=== PATIENT | female | born 1985 | race Caucasian/White ===

== ENCOUNTER 2017-07-02 11:35 | Inpatient (IN) | payer BC ==
[2017-07-02] MEDS ORDERED: Nalbuphine 20 MG/1 ML Amp IVPUSH PRN (12:28)
[2017-07-02] MEDS ORDERED: Sodium Chloride 0.9% 10 ML Syringe FLUSH PRN (12:28)
[2017-07-02] MEDS ORDERED: Oxytocin/Lactated Ringers 10 UNIT/1,000 ML BAG IV SCH ×2 (12:30)
[2017-07-02] MEDS: Lactated Ringers 1,000 ML IV SCH ×4 (14:00→22:06)
[2017-07-02] MEDS ORDERED: diphenhydrAMINE 50 MG/ML SDV IVPUSH PRN (15:17)
[2017-07-02] MEDS ORDERED: ePHEDrine 50 MG/ML SDV IVPUSH PRN (15:17)
[2017-07-02] MEDS ORDERED: fentaNYL 100 MCG/2 ML SDV EPIDUR PRN (15:17)
[2017-07-02] MEDS ORDERED: Bupivacaine/fentaNYL/NS 100 ML Bag EPIDUR SCH (15:30)
--- NOTE | 2017-07-02 15:49 | PCM.PREANE ---
Preanesthetic Assessment - Anesthesia/Transfusion/Family Hx Anesthesia History: Prior Anesthesia Without Reaction Family History of Anesthesia Reaction: No Transfusion History: No Prior Transfusion(s) - Review of Systems General: No Symptoms Pulmonary: No Symptoms Cardiovascular: No Symptoms Gastrointestinal: No Symptoms Neurological: No Symptoms Other: Reports: None - Physical Assessment Pulse: 48 O2 Sat by Pulse Oximetry: 97 Respiratory Rate: 14 Blood Pressure: 121/76 Temperature: 36.3 C Vital Signs: Last Vital Signs Temp 36.4 C 07/02/17 12:28 Pulse 48 L 07/02/17 12:31 Resp 14 07/02/17 12:28 BP 124/76 07/02/17 12:28 Pulse Ox Height: 1.7 m Weight: 100.698 kg ASA Class: 2 Mental Status: Alert & Oriented x3 Airway Class: Mallampati = 1 Dentition: Reports: Normal Dentition Thyro-Mental Finger Breadths: 3 Mouth Opening Finger Breadths: 3 ROM/Head Extension: Full Lungs: Clear to Auscultation, Normal Respiratory Effort Cardiovascular: Regular Rate, Regular Rhythm - Lab Values: Laboratory Last Values WBC 11.27 K/mm3 (3.98-10.04) H 07/02/17 12:40 RBC 4.49 M/mm3 (3.98-5.22) 07/02/17 12:40 Hgb 13.7 gm/L (11.2-15.7) 07/02/17 12:40 Hct 40.0 % (34.1-44.9) 07/02/17 12:40 MCV 89.1 fl (79.4-94.8) 07/02/17 12:40 MCH 30.5 pg (25.6-32.2) 07/02/17 12:40 MCHC 34.3 g/dl (32.2-35.5) 07/02/17 12:40 RDW Std Deviation 44.2 fL (36.4-46.3) 07/02/17 12:40 Plt Count 204 K/mm3 (182-369) 07/02/17 12:40 MPV 10.5 fl (9.4-12.3) 07/02/17 12:40 Neut % (Auto) 76.6 % (34.0-71.1) H 07/02/17 12:40 Lymph % (Auto) 14.0 % (19.3-51.7) L 07/02/17 12:40 Jess[place] % (Auto) 8.6 % (4.7-12.5) 07/02/17 12:40 Eos % (Auto) 0.2 (0.7-5.8) L 07/02/17 12:40 Baso % (Auto) 0.2 % (0.1-1.2) 07/02/17 12:40 Neut # (Auto) 8.63 K/mm3 (1.56-6.13) H 07/02/17 12:40 Lymph # (Auto) 1.58 K/mm3 (1.18-3.74) 07/02/17 12:40 Jessamine # (Auto) 0.97 K/mm3 (0.24-0.36) H 07/02/17 12:40 Eos # (Auto) 0.02 K/mm3 (0.04-0.36) L 07/02/17 12:40 Baso # (Auto) 0.02 K/mm3 (0.01-0.08) 07/02/17 12:40 - Allergies Allergies/Adverse Reactions: Allergies Allergy/AdvReac Type Severity Reaction Status Date / Time No Known Allergies Allergy Verified 07/02/17 12:32 - Anesthesia Plan Pre-Op Medication Ordered: None - Acknowledgements Anesthesia Type Planned: Epidural Pt an Appropriate Candidate for the Planned Anesthesia: Yes Alternatives and Risks of Anesthesia Discussed w Pt/Guardian: Yes Pt/Guardian Understands and Agrees with Anesthesia Plan: Yes PreAnesthesia Questionnaire Gastrointestinal History: Reports: GERD - HOME MEDS Home Medications: Home Meds Vit W-Ca,Fe,FA(<1 mg) [ Vitamins] 1 each PO DAILY 07/02/17 [ History] - CURRENT (IN HOUSE) MEDS Current Meds: Current Medications Diphenhydramine HCl (Benadryl) 25 mg IVPUSH Q6H PRN PRN Reason: Itching Ephedrine Sulfate (Ephedrine Sulfate) 5 mg IVPUSH ASDIRECTED PRN PRN Reason: HYPOTENTSION Fentanyl (Sublimaze) 100 mcg EPIDUR Q3H PRN PRN Reason: PAIN Fentanyl/Bupivacaine HCl (Fentanyl/Bupivacaine/Ns 2 Mcg-0.125% 100 Ml) 100 ml EPIDUR ASDIRECTED JÚNIOR Lactated Ringer's (Ringers, Lactated) 1,000 mls @ 100 mls/hr IV ASDIRECTED JÚNIOR Oxytocin/Lactated Ringer's (Pitocin In Lr 10 Units/1,000 Ml) 10 unit in 1,000 mls @ 12 mls/hr IV TITRATE JÚNIOR; 2 MUNITS/MIN PRN Reason: Protocol Oxytocin/Lactated Ringer's (Pitocin In Lr 10 Units/1,000 Ml) 10 unit in 1,000 mls @ 500 mls/hr IV .CONTINUOUS JÚNIOR Lidocaine HCl (Xylocaine 1%) 0 ml INJECT ONETIME ONE Stop: 07/02/17 18:01 Nalbuphine HCl (Nubain) 10 mg IVPUSH Q2H PRN PRN Reason: Pain (moderate 4-6) Last Admin: 07/02/17 15:15 Dose: 10 mg Sodium Chloride (Saline Flush) 10 ml FLUSH ASDIRECTED PRN PRN Reason: Keep Vein Open
--- NOTE | 2017-07-02 16:43 | PCM.LDHP ---
L&D History of Present Illness - General Date of Service: 07/02/17 Admit Problem/Dx: Patient Status Order with Admit Dx/Problem 07/02/17 12:35 Admission Status [Patient Status] [ADT] Routine Admission Diagnosis/Problem Admission Diagnosis/Problem Labor established 07/02/17 16:36 39-6/7 week intrauterine , early active labor Source of Information: Patient History Limitations: Reports: No Limitations - History of Present Illness Introduction:: Amber is a 31-year-old 1 para 0 white female was admitted after being seen in clinic for reported contractions. Contractions occurring every 3-5 minutes, moderate in intensity and starting at approximately 0300 hrs. this morning. She is dilated to a tight 3 cm, 95% effaced, -2 station, bulging bag ramirez, mid position and very soft. Her presents change from her evaluation yesterday. Eyes consistent with early active labor [employer]OR [employer] FAMILY MEDICINE history: Patient is 1 para 0. Her CARMEN is 07/03/2017 as based upon an early ultrasound done on 11/14/2016 at 7-0/7 weeks gestational age. Is supported by another ultrasound done on ultrasound done on 2016 at 10-4/7 weeks gestational age. Patient was seen on a regular basis with first visit occurring on 12/08/2016. Ultrasound at that time consistent with earlier ultrasound dating. Patient was a centering patient and was seen on a very regular basis. Her weight gain was from 189 pounds up to 223 pounds for a 44 pound weight gain. Her blood pressure and other vital signs are stable throughout the course Her fundal height growth was appropriate. She plans to breast-feed. She declined genetic testing.. Her depression screening score on 02/05/2017 was for a scale of 30. Her group B strep screen was negative. Patient has a history of mild depression placement at slightly higher risk for depression. Laboratory testing and shows her blood to be A+ with negative antibody screen. Her first laboratory tests showed hemoglobin 14.7 g/ dL and a platelet count 281,000. She is rubella immune. RPR is nonreactive. Hepatitis B and HIV assays were negative. Chlamydia and gonorrhea assays both negative. Her TSH was normal at 2.290 mU/L. S and showed a hematocrit of 40.2 and hemoglobin normal at 13.8 g/dL. Her platelets are 222,000. One-hour GTT was normal at 83. Group B strep screen was negative. Allergies: none Medications: vitamins Past medical history: Unremarkable Past surgical history: [place] teeth extraction Family history: Mother is alive with arthritis. Father is alive at age 68 and healthy. Maternal grandmother is secondary to old age. Paternal grandfather secondary to cancermesothelioma. Paternal grandmother is alive and well. Paternal grandfather is deceasedcause unknown. she reports no bleeding, clotting, anesthesia problems in the family. Social history: Patient is , lives in [place]. She works at [employer]. is [place]. She denies any significant loss of alcohol, drugs or tobacco. Review of systems: In general patient has symptoms of early labor. Skin: Negative Cardiovascular: No chest pain or exercise intolerance Respiratory: No shortness of breath or infectious symptoms Breasts: Changes associated with . Patient plans to breast-feed. GI: Negative : Increased abdominal girth secondary to . Neurological: Negative Musculoskeletal: Negative Physical exam: In general the patient is well-developed, well-nourished, pleasant female in mild distress secondary to early labor. Gain is warm and dry without lesions. HEENT, neck and back within normal limits Lungs are clear with good breath sounds in all lung casanova. Cardiovascular exam shows regular rate and rhythm without murmurs. Breast exam is deferred Abdomen is protuberant with with fundal height of 39 cm. Baby in vertex presentation. Cervix is as described above. Artificial rupture membranes undertaken with resultant clear amniotic fluid. Extremities and neurological exam grossly within normal limits. Pain Score: 10 - Related Data Allergies/Adverse Reactions: Allergies Allergy/AdvReac Type Severity Reaction Status Date / Time No Known Allergies Allergy Verified 07/02/17 12:32 Home Medications: Home Meds Vit W-Ca,Fe,FA(<1 mg) [ Vitamins] 1 each PO DAILY 07/02/17 [ History] Past Medical History Gastrointestinal History: Reports: GERD H&P Review of Systems - Review of Systems: Review Of Systems: See Below L&D Exam - Exam Exam: See Below - Vital Signs Vital Signs: Last Vital Signs Temp 36.3 C 07/02/17 15:49 Pulse 48 L 07/02/17 15:49 Resp 14 07/02/17 15:49 BP 121/76 07/02/17 15:49 Pulse Ox 97 07/02/17 15:49 Weight: 100.698 kg - Patient Data Lab Results Last 24 hrs: Laboratory Results - last 24 hr 07/02/17 Range/Units 12:40 WBC 11.27 H (3.98-10.04) K/mm3 RBC 4.49 (3.98-5.22) M/mm3 Hgb 13.7 (11.2-15.7) gm/L Hct 40.0 (34.1-44.9) % MCV 89.1 (79.4-94.8) fl MCH 30.5 (25.6-32.2) pg MCHC 34.3 (32.2-35.5) g/dl RDW Std Deviation 44.2 (36.4-46.3) fL Plt Count 204 (182-369) K/mm3 MPV 10.5 (9.4-12.3) fl Neut % (Auto) 76.6 H (34.0-71.1) % Lymph % (Auto) 14.0 L (19.3-51.7) % Williamson % (Auto) 8.6 (4.7-12.5) % Eos % (Auto) 0.2 L (0.7-5.8) Baso % (Auto) 0.2 (0.1-1.2) % Neut # (Auto) 8.63 H (1.56-6.13) K/mm3 Lymph # (Auto) 1.58 (1.18-3.74) K/mm3 Williamson # (Auto) 0.97 H (0.24-0.36) K/mm3 Eos # (Auto) 0.02 L (0.04-0.36) K/mm3 Baso # (Auto) 0.02 (0.01-0.08) K/mm3 Result Diagrams: 07/02/17 12:40 Problem List Initiated/Reviewed/Updated: Yes Orders Last 24hrs: Active Orders 24 hr Category Date Time Status Admission Status [Patient Status] [ADT] Routine ADT 07/02/17 12:35 Active Activity as Tolerated [RC] PFP Care 07/02/17 12:28 Active Communication Order [RC] ASDIRECTED Care 07/02/17 12:28 Active Communication Order [RC] ASDIRECTED Care 07/02/17 15:17 Active Cooling Warming Measures [RC] ASDIRECTED Care 07/02/17 15:17 Active Notify Provider [RC] ASDIRECTED Care 07/02/17 15:17 Active Notify Provider [RC] PFP Care 07/02/17 12:28 Active Notify Provider [RC] PRN Care 07/02/17 12:28 Active Oxygen Therapy [RC] ASDIRECTED Care 07/02/17 15:17 Active Peripheral IV Care [RC] . DIRECTED Care 07/02/17 12:29 Active Pulse Oximetry [RC] ASDIRECTED Care 07/02/17 15:17 Active Urinary Catheter Assessment [RC] ASDIRECTED Care 07/02/17 12:28 Active Verify Patient Consent Obtain [RC] ASDIRECTED Care 07/02/17 15:17 Active Vital Signs [RC] PER UNIT ROUTINE Care 07/02/17 12:28 Active Vital Signs [RC] Q1H Care 07/02/17 15:17 Active Regular Diet [DIET] Diet 07/02/17 Lunch Active Bupivacaine/fentaNYL/NS [fentaNYL/Bupivacaine/NS 2 MCG- Med 07/02/17 15:30 Active 0.125% 100 ML] 100 ml EPIDUR ASDIRECTED Lactated Ringers [Ringers, Lactated] 1,000 ml Med 07/02/17 12:30 Active IV ASDIRECTED Lidocaine 1% [Xylocaine 1%] Med 07/02/17 18:00 Once 0 ml INJECT ONETIME ONE Nalbuphine [Nubain] Med 07/02/17 12:28 Active 10 mg IVPUSH Q2H PRN Oxytocin/Lactated Ringers [Pitocin in LR 10 Units/1,000 Med 07/02/17 12:30 Active ML] 10 unit in 1,000 ml IV .CONTINUOUS Oxytocin/Lactated Ringers [Pitocin in LR 10 Units/1,000 Med 07/02/17 12:30 Active ML] 10 unit in 1,000 ml IV TITRATE Sodium Chloride 0.9% [Saline Flush] Med 07/02/17 12:28 Active 10 ml FLUSH ASDIRECTED PRN diphenhydrAMINE [Benadryl] Med 07/02/17 15:17 Active 25 mg IVPUSH Q6H PRN ePHEDrine [ePHEDrine Sulfate] Med 07/02/17 15:17 Active 5 mg IVPUSH ASDIRECTED PRN fentaNYL [Sublimaze] Med 07/02/17 15:17 Active 100 mcg EPIDUR Q3H PRN Electronic Heart Tones Ext w TOCO [WOMSER] Oth 07/02/17 12:28 Ordered Routine Electronic Heart Tones Internal [WOMSER] Per Unit Oth 07/02/17 12:28 Ordered Routine Peripheral IV Insertion Adult [OM.PC] Routine Oth 07/02/17 12:28 Ordered Resuscitation Status Routine Resus Stat 07/02/17 12:28 Ordered Medication Orders Diphenhydramine HCl (Benadryl) 25 mg IVPUSH Q6H PRN PRN Reason: Itching Ephedrine Sulfate (Ephedrine Sulfate) 5 mg IVPUSH ASDIRECTED PRN PRN Reason: HYPOTENTSION Fentanyl (Sublimaze) 100 mcg EPIDUR Q3H PRN PRN Reason: PAIN Fentanyl/Bupivacaine HCl (Fentanyl/Bupivacaine/Ns 2 Mcg-0.125% 100 Ml) 100 ml EPIDUR ASDIRECTED JÚNIOR Lactated Ringer's (Ringers, Lactated) 1,000 mls @ 100 mls/hr IV ASDIRECTED JÚNIOR Last Admin: 07/02/17 16:04 Dose: 100 mls/hr Infusion: 07/02/17 16:04 Dose: 100 mls/hr Admin: 07/02/17 14:00 Dose: 100 mls/hr Oxytocin/Lactated Ringer's (Pitocin In Lr 10 Units/1,000 Ml) 10 unit in 1,000 mls @ 12 mls/hr IV TITRATE JÚNIOR; 2 MUNITS/MIN PRN Reason: Protocol Oxytocin/Lactated Ringer's (Pitocin In Lr 10 Units/1,000 Ml) 10 unit in 1,000 mls @ 500 mls/hr IV .CONTINUOUS JÚNIOR Lidocaine HCl (Xylocaine 1%) 0 ml INJECT ONETIME ONE Stop: 07/02/17 18:01 Nalbuphine HCl (Nubain) 10 mg IVPUSH Q2H PRN PRN Reason: Pain (moderate 4-6) Last Admin: 07/02/17 15:15 Dose: 10 mg Sodium Chloride (Saline Flush) 10 ml FLUSH ASDIRECTED PRN PRN Reason: Keep Vein Open Assessment/Plan Comment:: 1. 39-6/7 week intrauterine , early active labor with cervical change 2. Relatively low risk . Dating with a 7-0/7 week ultrasound 3. B strep screen negative 4. Patient plans to breast-feed 5. History of mild depression in the past-has not had any problems during this . 6. She is okay with epidural in labor and delivery Plan: 1. Anticipate normal spontaneous vaginal delivery 2. Epidural when necessary for labor analgesia 3. CBC for platelet count 4. Support breast-feeding decision.
[2017-07-02] MEDS ORDERED: Lidocaine 1% 50 ML MDV INJECT ONE (18:00)
[2017-07-02] MEDS ORDERED: Bupivacaine 0.25% 10 ML SDV ONE (22:22)
[2017-07-03] MEDS: Lactated Ringers 1,000 ML IV SCH (00:53)
--- NOTE | 2017-07-03 04:41 | PCM.SN ---
- Free Text/Narrative Note: Delivery note: Amber is a 31-year-old 1 para 1001 white female who is admitted in active labor on 07/02/2017. She progressed slowly until artificial rupture membranes which had resultant clear amniotic fluid. After the rupture membranes labor picked up. She was augmented with Pitocin. She had an epidural for analgesia in labor and delivery. She became completely dilated at approximately 0100 hrs. on 07/03/2017. She pushed for approximately 2-1/2 hours and delivered a viable, vu, female infant with Apgars of 8 and 9, length of 20.25 inches, a weight of 3430 g (7 pounds 9.0 ounces with delivery occurring at 0412 hrs. Pitocin was started after delivery to facilitate increase in uterine tone and decrease bleeding. Baby delivered in a left occiput anterior position. The baby was placed on mom's abdomen. The cord was allowed to pulsate until it stopped and then was clamped 2 and then was cut by the baby's father. Cord blood was obtained. A second-degree laceration which occurred with the delivery was repaired with 3-0 Monocryl using epidural as anesthesia. Central delivered in a González presentation. It appeared intact, complete and was discarded per patient desire. Patient plans to nurse. Estimated blood loss was 100 mL. Condition: Good
[2017-07-03] MEDS ORDERED: Lanolin 100% Cream 7 GM Tube TOP PRN (05:12)
[2017-07-03] MEDS ORDERED: Witch Hazel Medicated Pads 100/Jar TOP PRN (05:12)
[2017-07-03] MEDS ORDERED: Acetaminophen 325 MG Tab PO PRN (05:12)
[2017-07-03] MEDS ORDERED: Benzocaine/Menthol 20%-0.5% Spray 56 GM Canister TOP PRN (05:12)
[2017-07-03] MEDS: Ibuprofen 600 MG Tab PO PRN ×3 (05:46→19:57)
--- NOTE | 2017-07-03 13:06 | PCM48HPAN ---
Post Anesthesia Note - EVALUATION WITHIN 48HRS OF ANESTHETIC Vital Signs in Normal Range: Yes Patient Participated in Evaluation: Yes Respiratory Function Stable: Yes Airway Patent: Yes Cardiovascular Function Stable: Yes Hydration Status Stable: Yes Pain Control Satisfactory: Yes Nausea and Vomiting Control Satisfactory: Yes Mental Status Recovered: Yes - COMMENTS/OBSERVATIONS Free Text/Narrative:: Pt doing well resting in bed. No anesthetic complications.
[2017-07-03] MEDS: Prenatal Multivitamin with Calcium/Folic Acid/Iron Tab PO SCH (14:00)
[2017-07-03] MEDS: Docusate Sodium 100 MG Cap PO PRN (15:22)
[2017-07-04] MEDS: Ibuprofen 600 MG Tab PO PRN ×2 (04:15→09:44)
[2017-07-04] MEDS: Docusate Sodium 100 MG Cap PO PRN (04:15)
--- NOTE | 2017-07-04 09:36 | PCM.DCSUM1 ---
Discharge Summary - Hospital Course Free Text/Narrative:: Amber is a 31-year-old 1 para 1001 white female who was admitted in active labor on 07/02/2017. She progressed slowly until artificial rupture membranes. After the rupture membranes labor picked up. She was augmented with Pitocin. She had an epidural for analgesia in labor and delivery. She became completely dilated at approximately 0100 hrs. on 07/03/2017. She pushed for approximately 2-1/2 hours and delivered a viable, vu, female with Apgars of 8 and 9, length of 20.25 inches, a weight of 3430 g (7 pounds 9.0 ounces with delivery occurring at 0412 hrs. Pitocin was started after delivery to facilitate increase in uterine tone and decrease bleeding. Baby delivered in a left occiput anterior position. The baby was placed on mom's abdomen. The cord was allowed to pulsate until it stopped and then was clamped 2 and then was cut by the baby's father. Cord blood was obtained. A second-degree laceration which occurred with the delivery was repaired with 3-0 Monocryl using epidural as anesthesia. Central delivered in a Langston presentation. It appeared intact, complete and was discarded per patient desire. Patient plans to nurse. Estimated blood loss was 100 mL. patient's done well. She is nursing without problems, has minimal lochia. Hemoglobin is 11.1 and platelets are within normal limits. She is desiring discharge home. - Discharge Data Discharge Date: 07/04/17 Discharge Disposition: Home, Self-Care 01 Condition: Good - Patient Instructions Diet: Regular Diet as Tolerated (Nursing diet was increased calories and calcium as directed.) Activity: As Tolerated (No intercourse or tampons until bleeding resolves.) Driving: May Drive Today Showering/Bathing: May Shower (May take a bath) Notify Provider of: Fever, Increased Pain, Swelling and Redness, Nausea and/or Vomiting - Discharge Plan Home Medications: Home Meds Vit W-Ca,Fe,FA(<1 mg) [ Vitamins] 1 each PO DAILY 07/02/17 [ History] Acetaminophen [Tylenol] 650 mg PO Q4H PRN tablet 07/04/17 [Rx] Docusate Sodium [Colace] 100 mg PO BID PRN cap 07/04/17 [Rx] Ibuprofen [IJD: Ibuprofen] 600 mg PO Q4H PRN tablet 07/04/17 [Rx] Patient Handouts: and Mastitis, Vaginal Delivery, Care After, Breast Pumping Tips, [id number], Challenges and Solutions Referrals: Ramos Kerns MD [Primary Care Provider] - ([facility] - Discharge Summary/Plan Comment DC Time >30 min.: No Discharge Summary/Plan Comment: Discharge instructions: 1. Discharge home 2. Diet, activity and follow-up discussed with patient. Recommend nursing diet with increased calories and calcium. 3. Precautions given concern increased pain, bleeding, temperature, signs/ symptoms of DVT/PE. 4. Medications per home medication was printed, discussed with and given to the patient. 5. [facility] Diagnosis: Term -delivered Condition: Good - Patient Data Vitals - Most Recent: Last Vital Signs Temp 36.4 C 07/04/17 04:19 Pulse 55 L 07/04/17 04:19 Resp 18 07/04/17 04:19 BP 109/68 07/04/17 04:19 Pulse Ox 94 L 07/04/17 04:19 Weight - Most Recent: 100.698 kg I&O - Last 24 hours: Intake & Output 07/03/17 07/04/17 07/04/17 22:59 06:59 14:59 Intake Total 10 Balance 10 Lab Results - Last 24 hrs: Laboratory Results - last 24 hr 07/04/17 Range/Units 06:20 WBC 12.07 H (3.98-10.04) K/mm3 RBC 3.66 L (3.98-5.22) M/mm3 Hgb 11.1 L (11.2-15.7) gm/L Hct 33.8 L (34.1-44.9) % MCV 92.3 (79.4-94.8) fl MCH 30.3 (25.6-32.2) pg MCHC 32.8 (32.2-35.5) g/dl RDW Std Deviation 46.4 H (36.4-46.3) fL Plt Count 158 L (182-369) K/mm3 MPV 10.5 (9.4-12.3) fl Med Orders - Current: Current Medications Acetaminophen (Tylenol) 650 mg PO Q4H PRN PRN Reason: mild pain or fever Benzocaine/Menthol (Dermoplast Pain Relief [place]) 0 gm TOP ASDIRECTED PRN PRN Reason: Perineal Comfort Measure Last Admin: 07/03/17 05:45 Dose: 1 canister Docusate Sodium (Colace) 100 mg PO BID PRN PRN Reason: Constipation Last Admin: 07/04/17 04:15 Dose: 100 mg Emollient Ointment (Lansinoh Hpa) 0 gm TOP ASDIRECTED PRN PRN Reason: Sore Nipples Last Admin: 07/03/17 05:50 Dose: 1 tube Ibuprofen (Motrin) 600 mg PO Q4H PRN PRN Reason: Mild pain or fever Last Admin: 07/04/17 04:15 Dose: 600 mg Prenat Multivit/[place]/Iron/Folic Ac ( Plus Iron) 1 each PO DAILY [facility] Last Admin: 07/03/17 14:00 Dose: Not Given Yazan Cedeño ([place]) 1 pad TOP ASDIRECTED PRN PRN Reason: Hemorrhoid pain Last Admin: 07/03/17 05:45 Dose: 1 tub Discontinued Medications Bupivacaine HCl (Sensorcaine-Mpf 0.25%) 10 ml .ROUTE .STK-MED ONE Stop: 07/02/17 22:23 Diphenhydramine HCl (Benadryl) 25 mg IVPUSH Q6H PRN PRN Reason: Itching Ephedrine Sulfate (Ephedrine Sulfate) 5 mg IVPUSH ASDIRECTED PRN PRN Reason: HYPOTENTSION Fentanyl (Sublimaze) 100 mcg EPIDUR Q3H PRN PRN Reason: PAIN Fentanyl/Bupivacaine HCl (Fentanyl/Bupivacaine/Ns 2 Mcg-0.125% 100 Ml) 100 ml EPIDUR ASDIRECTED [facility] Last Admin: 07/03/17 00:23 Dose: 100 ml Lactated Ringer's (Ringers, Lactated) 1,000 mls @ 100 mls/hr IV ASDIRECTED [facility] Last Admin: 07/03/17 00:53 Dose: 100 mls/hr Oxytocin/Lactated Ringer's (Pitocin In Lr 10 Units/1,000 Ml) 10 unit in 1,000 mls @ 12 mls/hr IV TITRATE JÚNIOR; 2 MUNITS/MIN PRN Reason: Protocol Last Titration: 07/02/17 21:55 Dose: 5 munits/min, 30 mls/hr Oxytocin/Lactated Ringer's (Pitocin In Lr 10 Units/1,000 Ml) 10 unit in 1,000 mls @ 500 mls/hr IV .CONTINUOUS JÚNIOR Lidocaine HCl (Xylocaine 1%) 0 ml INJECT ONETIME ONE Stop: 07/02/17 18:01 Nalbuphine HCl (Nubain) 10 mg IVPUSH Q2H PRN PRN Reason: Pain (moderate 4-6) Last Admin: 07/02/17 15:15 Dose: 10 mg Sodium Chloride (Saline Flush) 10 ml FLUSH ASDIRECTED PRN PRN Reason: Keep Vein Open *Q Meaningful Use (DIS) - VTE *Q VTE Criteria *Q: - Stroke *Q Stroke Criteria *Q: - AMI *Q AMI Criteria *Q:
[2017-07-04] MEDS: Prenatal Multivitamin with Calcium/Folic Acid/Iron Tab PO SCH (12:41)
== END 2017-07-04 13:50 | disposition home or self-care (01) | DRG 560 ==
LOC: JD.OBCHECK 11:35 → JD.OB 11:39 → JD.OBCHECK 12:27 → JD.OB 12:28 → OBSVTOIN 07-03 04:12
PROVIDERS: ADMIT Obstetrics & Gynecology; ATTEND Obstetrics & Gynecology
PROC: 10E0XZZ Delivery of Products of Conception, External Approach (ICD-10-PCS; principal; 2017-07-03)
PROC: 10907ZC Drainage of Amniotic Fluid, Therapeutic from Products of Conception, Via Natural or Artificial Opening (ICD-10-PCS; 2017-07-03)
PROC: 0KQM0ZZ Repair Perineum Muscle, Open Approach (ICD-10-PCS; 2017-07-03)
PROC: 00HU33Z Insertion of Infusion Device into Spinal Canal, Percutaneous Approach (ICD-10-PCS; 2017-07-03)
PROC: 3E0R3BZ Introduction of Anesthetic Agent into Spinal Canal, Percutaneous Approach (ICD-10-PCS; 2017-07-03)
DX: O70.1 Second degree perineal laceration during delivery (principal); Z3A.40 40 weeks gestation of pregnancy; Z37.0 Single live birth
CPT/HCPCS: 36415; 51702; 59300; 59409; 85025; 85027; A9270-GY; J2300; J2590; J7120

== ENCOUNTER 2020-04-08 17:48 | Inpatient (IN) | payer BC ==
[2020-04-08] MEDS ORDERED: Ondansetron 4 MG/2 ML SDV IVPUSH PRN (18:22)
[2020-04-08] MEDS ORDERED: Sodium Chloride 0.9% 10 ML Syringe FLUSH PRN (18:22)
[2020-04-08] MEDS ORDERED: Nalbuphine 10 MG/ML Syringe IVPUSH PRN (18:22)
--- NOTE | 2020-04-08 18:25 | PCM.LDHP ---
L&D History of Present Illness - General Date of Service: 04/08/20 Admit Problem/Dx: Patient Status Order with Admit Dx/Problem 04/08/20 18:23 Patient Status [ADT] Routine Admission Diagnosis/Problem Admission Diagnosis/Problem Normal labor Source of Information: Patient History Limitations: Reports: No Limitations - History of Present Illness Introduction:: Patient is a 34 y/o at 39 3/7 wks who presents in labor. Contractions started earlier today. No LOF or VB. 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: : 2 Para: 1 LMP (Approximate): Psychiatric History: Reports: Anxiety, Depression - Past Surgical History HEENT Surgical History: Reports: Oral Surgery (wisdom tooth extraction) Social & Family History - Family History Family Medical History: Noncontributory - Tobacco Use Tobacco Use Status *Q: Never Tobacco User - Alcohol Use Alcohol Use History: No - Recreational Drug Use Recreational Drug Use: No H&P Review of Systems - Review of Systems: Review Of Systems: See Below General: Reports: No Symptoms Pulmonary: Reports: No Symptoms Cardiovascular: Reports: No Symptoms Gastrointestinal: Reports: No Symptoms Genitourinary: Reports: No Symptoms Musculoskeletal: Reports: No Symptoms Psychiatric: Reports: No Symptoms Neurological: Reports: No Symptoms L&D Exam - Exam Exam: See Below - Vital Signs Vital Signs: Last Vital Signs Temp 37.6 C 04/08/20 18:07 Pulse 78 04/08/20 18:07 Resp 18 04/08/20 18:07 BP 117/71 04/08/20 18:07 Pulse Ox 99 04/08/20 18:07 - OB Specific Contraction Intensity: Moderate to Strong Movement: Active Heart Tones: Present Heart Tones per Min: 135 Heart Rate (FHR) Variability: Moderate (6-25 bmp) Presentation: Vertex - Falcon Score Falcon Score Cervix Position: Anterior Falcon Score Consistency: Soft Falcon Score Effacement: >80% Falcon Score Dilation: > 5 cm Falcon Score Infant's Station: -1 ,0 Falcon Score Total: 12 - Exam General: Alert, Oriented, Cooperative Lungs: Clear to Auscultation, Normal Respiratory Effort Cardiovascular: Regular Rate, Regular Rhythm GI/Abdominal Exam: Soft, Non-Tender Genitourinary: Normal external exam Extremities: Normal Inspection Skin: Warm, Dry, Intact - Patient Data Result Diagrams: 04/08/20 19:20 - Problem List (1) 39 weeks gestation of SNOMED Code(s): 96875320 ICD Code: Z3A.39 - 39 WEEKS GESTATION OF Status: Acute Current Visit: Yes (2) Normal labor SNOMED Code(s): 01285821 ICD Code: O80 - ENCOUNTER FOR FULL-TERM UNCOMPLICATED DELIVERY; Z37.9 - OUTCOME OF DELIVERY, UNSPECIFIED Status: Acute Current Visit: Yes Problem List Initiated/Reviewed/Updated: Yes Orders Last 24hrs: Active Orders 24 hr Category Date Time Status Patient Status [ADT] Routine ADT 04/08/20 18:23 Ordered Activity as Tolerated [RC] PFP Care 04/08/20 18:23 Ordered Communication Order [RC] ASDIRECTED Care 04/08/20 18:23 Ordered Heart Tones [RC] ASDIRECTED Care 04/08/20 18:23 Ordered Non Stress Test [RC] PER UNIT ROUTINE Care 04/08/20 18:23 Ordered Notify Provider [RC] PFP Care 04/08/20 18:23 Ordered Notify Provider [RC] PRN Care 04/08/20 18:23 Ordered Peripheral IV Care [RC] . DIRECTED Care 04/08/20 18:23 Ordered Vital Signs [RC] PER UNIT ROUTINE Care 04/08/20 18:23 Ordered Regular Diet [DIET] Diet 04/08/20 Dinner Ordered CBC W/O DIFF,HEMOGRAM [HEME] Stat Lab 04/08/20 18:22 Ordered RAPID PLASMA REAGIN,RPR [CHEM] Stat Lab 04/08/20 18:22 Ordered TYPE AND SCREEN [BBK] Stat Lab 04/08/20 18:22 Ordered Lactated Ringers [Ringers, Lactated] 1,000 ml Med 04/08/20 18:30 Ordered IV ASDIRECTED Nalbuphine [Nubain] Med 04/08/20 18:22 Ordered 10 mg IVPUSH Q2H PRN Ondansetron [Zofran] Med 04/08/20 18:22 Ordered 4 mg IVPUSH Q4H PRN Oxytocin/Lactated Ringers [Pitocin in LR 10 Units/1,000 Med 04/08/20 18:30 Ordered ML] 10 unit in 1,000 ml IV .CONTINUOUS Sodium Chloride 0.9% [Saline Flush] Med 04/08/20 18:22 Ordered 10 ml FLUSH ASDIRECTED PRN Electronic Heart Tones Ext w TOCO [WOMSER] Oth 04/08/20 18:23 Ordered Routine Electronic Heart Tones Internal [WOMSER] Per Unit Oth 04/08/20 18:23 Ordered Routine Peripheral IV Insertion Adult [OM.PC] Routine Oth 04/08/20 18:23 Ordered Resuscitation Status Routine Resus Stat 04/08/20 18:22 Ordered Medication Orders Oxytocin/Lactated Ringer's (Pitocin In Lr 10 Units/1,000 Ml) 10 unit in 1,000 mls @ 500 mls/hr IV .CONTINUOUS JÚNIOR Nalbuphine HCl (Nubain) 10 mg IVPUSH Q2H PRN PRN Reason: Pain Ondansetron HCl (Zofran) 4 mg IVPUSH Q4H PRN PRN Reason: Nausea/Vomiting Sodium Chloride (Saline Flush) 10 ml FLUSH ASDIRECTED PRN PRN Reason: Keep Vein Open Assessment/Plan Comment:: * Labs * GBS negative * Pain management per patient preference * Anticipate
[2020-04-08] MEDS ORDERED: Oxytocin/Lactated Ringers 10 UNIT/1,000 ML BAG IV SCH ×2 (18:30→22:45)
[2020-04-08] MEDS: Lactated Ringers 1,000 ML IV SCH ×4 (18:47→22:16)
[2020-04-08] MEDS ORDERED: Bupivacaine/fentaNYL/NS 100 ML Bag EPIDUR PRN (19:54)
[2020-04-08] MEDS ORDERED: diphenhydrAMINE 50 MG/ML SDV IVPUSH PRN (19:54)
[2020-04-08] MEDS ORDERED: ePHEDrine 50 MG/ML SDV IVPUSH PRN (19:54)
[2020-04-08] MEDS ORDERED: fentaNYL 100 MCG/2 ML SDV EPIDUR PRN (19:54)
[2020-04-08] MEDS ORDERED: fentaNYL 100 MCG/2 ML SDV ONE (20:13)
--- NOTE | 2020-04-08 20:22 | PCM.PREANE ---
Preanesthetic Assessment - Procedure Proposed Procedure: epidural - Anesthesia/Transfusion/Family Hx Anesthesia History: Prior Anesthesia Without Reaction Family History of Anesthesia Reaction: No Transfusion History: No Prior Transfusion(s) - Review of Systems General: Fatigue Pulmonary: No Symptoms Cardiovascular: No Symptoms Gastrointestinal: Abdominal Pain (Labor) Neurological: No Symptoms Other: Reports: None - Physical Assessment Vital Signs: Last Vital Signs Temp 37.6 C 04/08/20 18:07 Pulse 78 04/08/20 18:07 Resp 18 04/08/20 18:07 BP 117/71 04/08/20 18:07 Pulse Ox 99 04/08/20 18:07 Height: 1.7 m Weight: 87.543 kg ASA Class: 2 Mental Status: Alert & Oriented x3 Airway Class: Mallampati = 1 Dentition: Reports: Normal Dentition Thyro-Mental Finger Breadths: 3 Mouth Opening Finger Breadths: 3 ROM/Head Extension: Full Lungs: Clear to Auscultation, Normal Respiratory Effort Cardiovascular: Regular Rate, Regular Rhythm - Lab Values: Laboratory Last Values WBC 8.53 K/mm3 (3.98-10.04) 04/08/20 19:20 RBC 4.01 M/mm3 (3.98-5.22) 04/08/20 19:20 Hgb 11.7 gm/dl (11.2-15.7) 04/08/20 19:20 Hct 36.3 % (34.1-44.9) 04/08/20 19:20 MCV 90.5 fl (79.4-94.8) 04/08/20 19:20 MCH 29.2 pg (25.6-32.2) 04/08/20 19:20 MCHC 32.2 g/dl (32.2-35.5) 04/08/20 19:20 RDW Std Deviation 46.7 fL (36.4-46.3) H 04/08/20 19:20 Plt Count 194 K/mm3 (182-369) 04/08/20 19:20 MPV 9.8 fl (9.4-12.3) 04/08/20 19:20 Blood Type A POSITIVE 04/08/20 19:15 Gel Antibody Screen Negative 04/08/20 19:15 - Allergies Allergies/Adverse Reactions: Allergies Allergy/AdvReac Type Severity Reaction Status Date / Time No Known Allergies Allergy Verified 07/02/17 12:32 - Anesthesia Plan Pre-Op Medication Ordered: None - Acknowledgements Anesthesia Type Planned: Epidural Pt an Appropriate Candidate for the Planned Anesthesia: Yes Alternatives and Risks of Anesthesia Discussed w Pt/Guardian: Yes Pt/Guardian Understands and Agrees with Anesthesia Plan: Yes PreAnesthesia Questionnaire HEENT History: Reports: None Gastrointestinal History: Reports: GERD 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[employer]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: Psychiatric History: Reports: Anxiety, Depression Other Psychiatric History: history of depression with 1st child - Past Surgical History HEENT Surgical History: Reports: Oral Surgery (wisdom tooth extraction) - SUBSTANCE USE Tobacco Use Status *Q: Never Tobacco User Tobacco Use Within Last Twelve Months: No Second Hand Smoke Exposure: No Recreational Drug Use History: No - HOME MEDS Home Medications: Home Meds Vit Calc,Iron,Folic [ Vitamins] 1 each PO DAILY 07/02/17 [History] Acetaminophen [Tylenol] 650 mg PO Q4H PRN tablet 07/04/17 [Rx] Docusate Sodium [Colace] 100 mg PO BID PRN cap 07/04/17 [Rx] Ibuprofen [IJD: Ibuprofen] 600 mg PO Q4H PRN tablet 07/04/17 [Rx] - CURRENT (IN HOUSE) MEDS Current Meds: Current Medications Diphenhydramine HCl (Benadryl) 25 mg IVPUSH Q6H PRN PRN Reason: pruritis Ephedrine Sulfate (Ephedrine Sulfate) 5 mg IVPUSH ASDIRECTED PRN PRN Reason: Hypotension Fentanyl (Sublimaze) 100 mcg EPIDUR Q3H PRN PRN Reason: Pain Fentanyl/Bupivacaine HCl (Fentanyl/Bupivacaine/Ns 2 Mcg-0.125% 100 Ml) 100 ml EPIDUR ASDIRECTED PRN PRN Reason: Pain Oxytocin/Lactated Ringer's (Pitocin In Lr 10 Units/1,000 Ml) 10 unit in 1,000 mls @ 500 mls/hr IV .CONTINUOUS JÚNIOR Lactated Ringer's (Ringers, Lactated) 1,000 mls @ 100 mls/hr IV ASDIRECTED JÚNIOR Last Admin: 04/08/20 20:15 Dose: 999 mls/hr Documented by: Nalbuphine HCl (Nubain) 10 mg IVPUSH Q2H PRN PRN Reason: Pain Ondansetron HCl (Zofran) 4 mg IVPUSH Q4H PRN PRN Reason: Nausea/Vomiting Sodium Chloride (Saline Flush) 10 ml FLUSH ASDIRECTED PRN PRN Reason: Keep Vein Open
[2020-04-09] MEDS ORDERED: Calcium Carbonate 500 MG Tab.Chew PO PRN (01:01)
--- NOTE | 2020-04-09 01:25 | PCM.DEL ---
L & D Note - General Info Date of Service: 04/09/20 - Delivery Note Labor: Spontaneous Delivery Outcome: Livebirth Delivery Mode: Spontaneous Presentation: Left Occiput Anterior (ANDREA) Nuchal Cord: None Anesthesia Type: Epidural Amniotic Fluid Description: Clear Episiotomy Type: None Laceration: None Placenta: Intact, Spontaneous Cord: 3 Vessels Estimated Blood Loss: 100 Thomas: Bulb Syringe, Stimulated, Warmed, [place]ley Used, Warmer Used Delivery Comments (Free Text/Narrative):: Patient found to be complete and began pushing. With maternal pushing effort head delivered from an ANDREA presentation. No nuchal cord present. With gentle downward traction shoulders and body delivered. Infant placed on maternal abdomen. Cord clamped and cut. Cord blood obtained. Placenta allowed time to separate and expelled intact. Inspection of perineum with small abrasion. Hemostatic and so not repaired - General Info Date of Service: 04/09/20 - Patient Data Vitals - Most Recent: Last Vital Signs Temp 37.6 C 04/08/20 18:07 Pulse 78 04/08/20 18:07 Resp 18 04/08/20 18:07 BP 117/71 04/08/20 18:07 Pulse Ox 99 04/08/20 18:07 Weight - Most Recent: 87.543 kg I&O - Last 24 Hours: Intake & Output 04/08/20 04/08/20 04/09/20 14:59 22:59 06:59 Intake Total 1000 Balance 1000 - Problem List & Annotations (1) 39 weeks gestation of SNOMED Code(s): 93119560 Code(s): Z3A.39 - 39 WEEKS GESTATION OF Status: Acute Current Visit: Yes (2) Normal labor SNOMED Code(s): 78060251 Code(s): O80 - ENCOUNTER FOR FULL-TERM UNCOMPLICATED DELIVERY; Z37.9 - OUTCOME OF DELIVERY, UNSPECIFIED Status: Acute Current Visit: Yes (3) Vaginal delivery SNOMED Code(s): 799759140 Code(s): O80 - ENCOUNTER FOR FULL-TERM UNCOMPLICATED DELIVERY Status: Acute Current Visit: Yes - Problem List Review Problem List Initiated/Reviewed/Updated: Yes - My Orders Last 24 Hours: My Active Orders 04/08/20 Dinner Regular Diet [DIET] 04/08/20 18:22 RAPID PLASMA REAGIN,RPR [CHEM] Stat Nalbuphine [Nubain] 10 mg IVPUSH Q2H PRN Ondansetron [Zofran] 4 mg IVPUSH Q4H PRN Sodium Chloride 0.9% [Saline Flush] 10 ml FLUSH ASDIRECTED PRN Resuscitation Status Routine 04/08/20 18:23 Patient Status [ADT] Routine Activity as Tolerated [RC] PFP Communication Order [RC] ASDIRECTED Heart Tones [RC] ASDIRECTED Notify Provider [RC] PFP Notify Provider [RC] PRN Peripheral IV Care [RC] . DIRECTED Vital Signs [RC] PER UNIT ROUTINE Electronic Heart Tones Ext w TOCO [WOMSER] Routine Electronic Heart Tones Internal [WOMSER] Per Unit Routine Peripheral IV Insertion Adult [OM.PC] Routine 04/08/20 18:30 Lactated Ringers [Ringers, Lactated] 1,000 ml IV ASDIRECTED Oxytocin/Lactated Ringers [Pitocin in LR 10 Units/1,000 ML] 10 unit in 1,000 ml IV .CONTINUOUS 04/08/20 22:45 Oxytocin/Lactated Ringers [Pitocin in LR 10 Units/1,000 ML] 10 unit in 1,000 ml IV TITRATE 04/09/20 01:01 Calcium Carbonate [Tums] 1,000 mg PO Q2HR PRN - Assessment Assessment:: PPD#0 - Plan Plan:: * Routine cares * Breast feeding * Discharge home in 1-2 days
[2020-04-09] MEDS ORDERED: Witch Hazel Medicated Pads 40/Jar TOP PRN (02:01)
[2020-04-09] MEDS ORDERED: Acetaminophen 325 MG Tab PO PRN (02:01)
[2020-04-09] MEDS ORDERED: Benzocaine/Menthol 20%-0.5% Spray 56 GM Canister TOP PRN (02:01)
[2020-04-09] MEDS ORDERED: Docusate Sodium 100 MG Cap PO PRN (02:01)
[2020-04-09] MEDS: Ibuprofen 600 MG Tab PO PRN ×4 (02:16→20:09)
--- NOTE | 2020-04-09 07:36 | PCM48HPAN ---
Post Anesthesia Note - EVALUATION WITHIN 48HRS OF ANESTHETIC Vital Signs in Normal Range: Yes Patient Participated in Evaluation: Yes Respiratory Function Stable: Yes Airway Patent: Yes Cardiovascular Function Stable: Yes Hydration Status Stable: Yes Pain Control Satisfactory: Yes Nausea and Vomiting Control Satisfactory: Yes Mental Status Recovered: Yes Vital Signs: Last Vital Signs Temp 37.6 C 04/08/20 18:07 Pulse 78 04/08/20 18:07 Resp 18 04/08/20 18:07 BP 117/71 04/08/20 18:07 Pulse Ox 99 04/08/20 18:07
[2020-04-09] MEDS ORDERED: Bupivacaine 0.25% 10 ML SDV ONE (11:50)
[2020-04-10] MEDS: Ibuprofen 600 MG Tab PO PRN (06:45)
--- NOTE | 2020-04-10 06:55 | PCM.PNPP ---
- General Info Date of Service: 04/10/20 Functional Status: Reports: Pain Controlled, Tolerating Diet, Ambulating, Urinating - Review of Systems General: Reports: No Symptoms Pulmonary: Reports: No Symptoms Cardiovascular: Reports: No Symptoms Gastrointestinal: Reports: No Symptoms Genitourinary: Reports: No Symptoms Musculoskeletal: Reports: No Symptoms Neurological: Reports: No Symptoms - Patient Data Vital Signs - Most Recent: Last Vital Signs Temp 36.2 C 04/10/20 03:06 Pulse 87 04/09/20 20:05 Resp 15 04/10/20 03:06 BP 96/49 L 04/10/20 03:06 Pulse Ox 99 04/09/20 20:05 Weight - Most Recent: 87.543 kg Med Orders - Current: Current Medications Acetaminophen (Tylenol) 650 mg PO Q4H PRN PRN Reason: mild pain or fever Benzocaine/Menthol (Dermoplast Pain Relief [place]) 0 gm TOP ASDIRECTED PRN PRN Reason: Perineal Comfort Measure Docusate Sodium (Colace) 100 mg PO BID PRN PRN Reason: Constipation Last Admin: 04/09/20 20:09 Dose: 100 mg Documented by: Ibuprofen (Motrin) 600 mg PO Q4H PRN PRN Reason: Mild pain or fever Last Admin: 04/10/20 06:45 Dose: 600 mg [facility] 1 pad TOP ASDIRECTED PRN PRN Reason: Perineal Comfort Measure Discontinued Medications Bupivacaine HCl (Sensorcaine-Mpf 0.25%) 10 ml .ROUTE .STK-MED ONE Stop: 04/09/20 11:51 Calcium Carbonate/Glycine (Tums) 1,000 mg PO Q2HR PRN PRN Reason: Indigestion Diphenhydramine HCl (Benadryl) 25 mg IVPUSH Q6H PRN PRN Reason: pruritis Ephedrine Sulfate (Ephedrine Sulfate) 5 mg IVPUSH ASDIRECTED PRN PRN Reason: Hypotension Fentanyl (Sublimaze) 100 mcg EPIDUR Q3H PRN PRN Reason: Pain Last Admin: 04/08/20 20:30 Dose: 100 mcg Documented by: Fentanyl (Sublimaze) Confirm Administered Dose 100 mcg .ROUTE .STK-MED ONE Stop: 04/08/20 20:14 Last Admin: 04/08/20 20:32 Dose: Not Given Documented by: Fentanyl/Bupivacaine HCl (Fentanyl/Bupivacaine/Ns 2 Mcg-0.125% 100 Ml) 100 ml EPIDUR ASDIRECTED PRN PRN Reason: Pain Last Admin: 04/08/20 20:31 Dose: 100 ml Documented by: Oxytocin/Lactated Ringer's (Pitocin In Lr 10 Units/1,000 Ml) 10 unit in 1,000 mls @ 500 mls/hr IV .CONTINUOUS JÚNIOR Last Admin: 04/09/20 01:10 Dose: 500 mls/hr Documented by: Lactated Ringer's (Ringers, Lactated) 1,000 mls @ 100 mls/hr IV ASDIRECTED JÚNIOR Last Infusion: 04/08/20 22:16 Dose: 100 mls/hr Documented by: Oxytocin/Lactated Ringer's (Pitocin In Lr 10 Units/1,000 Ml) 10 unit in 1,000 mls @ 12 mls/hr IV TITRATE JÚNIOR; Protocol Nalbuphine HCl (Nubain) 10 mg IVPUSH Q2H PRN PRN Reason: Pain Ondansetron HCl (Zofran) 4 mg IVPUSH Q4H PRN PRN Reason: Nausea/Vomiting Sodium Chloride (Saline Flush) 10 ml FLUSH ASDIRECTED PRN PRN Reason: Keep Vein Open - Infant Interaction Disposition, : in Room with Family Infant Interaction: Holding Infant Infant Feeding: Attempted ; Nursed Fair/Poor Support Person: - Recovery Exam Fundal Tone: Firm Fundal Level: At Umbilicus Fundal Placement: Midline Lochia Amount: Small Lochia Color: Rubra/Red Perineum Description: Intact, Minimal Bruising/Swelling Episiotomy/Laceration: None Bladder Status: Voiding Urinary Elimination: Voided - Exam General: Alert, Oriented, Cooperative GI/Abdominal Exam: Soft, Non-Tender Extremities: Normal Inspection Skin: Warm, Dry, Intact - Problem List & Annotations (1) 39 weeks gestation of SNOMED Code(s): 99069779 Code(s): Z3A.39 - 39 WEEKS GESTATION OF Status: Acute Current Visit: Yes (2) Normal labor SNOMED Code(s): 98559088 Code(s): O80 - ENCOUNTER FOR FULL-TERM UNCOMPLICATED DELIVERY; Z37.9 - OUTCOME OF DELIVERY, UNSPECIFIED Status: Acute Current Visit: Yes (3) Vaginal delivery SNOMED Code(s): 892564612 Code(s): O80 - ENCOUNTER FOR FULL-TERM UNCOMPLICATED DELIVERY Status: Acute Current Visit: Yes - Problem List Review Problem List Initiated/Reviewed/Updated: Yes - My Orders Last 24 Hours: My Active Orders 04/09/20 Breakfast Regular Diet [DIET] 04/10/20 02:01 Heat Therapy [OM.PC] PRN - Assessment Assessment:: PPD#1 - Plan Plan:: * Routine cares * Breast feeding * Discharge home today
--- NOTE | 2020-04-10 06:57 | PCM.DCSUM1 ---
Discharge Summary - Discharge Data Discharge Date: 04/10/20 Discharge Disposition: Home, Self-Care 01 Condition: Good - Referral to Home Health Primary Care Physician: Yael Burton MD - Discharge Diagnosis/Problem(s) (1) 39 weeks gestation of SNOMED Code(s): 05060973 ICD Code: Z3A.39 - 39 WEEKS GESTATION OF Status: Acute Current Visit: Yes (2) Normal labor SNOMED Code(s): 43427457 ICD Code: O80 - ENCOUNTER FOR FULL-TERM UNCOMPLICATED DELIVERY; Z37.9 - OUTCOME OF DELIVERY, UNSPECIFIED Status: Acute Current Visit: Yes (3) Vaginal delivery SNOMED Code(s): 102699219 ICD Code: O80 - ENCOUNTER FOR FULL-TERM UNCOMPLICATED DELIVERY Status: Acute Current Visit: Yes - Patient Summary/Data Complications: None Consults: None Recommended Follow-up Testing/Procedures: Follow up in 2-3 weeks for check Hospital Course: 34 y/o at 39 3/7 wk presented in labor. Progressed well to complete dilation. Underwent uncomplicated . See delivery note. did well. Discharged home on PPD#1 - Patient Instructions Diet: Regular Diet as Tolerated Activity: As Tolerated Activity, Other: Pelvic rest for 6 weeks Driving: May Drive Today Showering/Bathing: May Shower Showering/Bathing, Other: May Bathe Notify Provider of: Fever, Increased Pain, Swelling and Redness, Drainage, Nausea and/or Vomiting - Discharge Plan *PRESCRIPTION DRUG MONITORING PROGRAM REVIEWED*: No *COPY OF PRESCRIPTION DRUG MONITORING REPORT IN PATIENT BRANDON: No Home Medications: Home Meds Vit Calc,Iron,Folic [ Vitamins] 1 each PO DAILY 07/02/17 [History] Acetaminophen [Tylenol] 650 mg PO Q4H PRN tablet 07/04/17 [Rx] Docusate Sodium [Colace] 100 mg PO BID PRN cap 07/04/17 [Rx] Ibuprofen [IJD: Ibuprofen] 600 mg PO Q4H PRN tablet 07/04/17 [Rx] Patient Handouts: and Self-Care, [id number], Care After Vaginal Delivery Referrals: Ramos Kerns MD [Physician] - (3 weeks for check) - Discharge Summary/Plan Comment DC Time >30 min.: No - Patient Data Vitals - Most Recent: Last Vital Signs Temp 36.2 C 04/10/20 03:06 Pulse 87 04/09/20 20:05 Resp 15 04/10/20 03:06 BP 96/49 L 04/10/20 03:06 Pulse Ox 99 04/09/20 20:05 Weight - Most Recent: 87.543 kg Med Orders - Current: Current Medications Acetaminophen (Tylenol) 650 mg PO Q4H PRN PRN Reason: mild pain or fever Benzocaine/Menthol (Dermoplast Pain Relief [place]) 0 gm TOP ASDIRECTED PRN PRN Reason: Perineal Comfort Measure Docusate Sodium (Colace) 100 mg PO BID PRN PRN Reason: Constipation Last Admin: 04/09/20 20:09 Dose: 100 mg Documented by: Ibuprofen (Motrin) 600 mg PO Q4H PRN PRN Reason: Mild pain or fever Last Admin: 04/10/20 06:45 Dose: 600 mg Documented by: Yazan Piedra) 1 pad TOP ASDIRECTED PRN PRN Reason: Perineal Comfort Measure Discontinued Medications Bupivacaine HCl (Sensorcaine-Mpf 0.25%) 10 ml .ROUTE .STK-MED ONE Stop: 04/09/20 11:51 Calcium Carbonate/Glycine (Tums) 1,000 mg PO Q2HR PRN PRN Reason: Indigestion Diphenhydramine HCl (Benadryl) 25 mg IVPUSH Q6H PRN PRN Reason: pruritis Ephedrine Sulfate (Ephedrine Sulfate) 5 mg IVPUSH ASDIRECTED PRN PRN Reason: Hypotension Fentanyl (Sublimaze) 100 mcg EPIDUR Q3H PRN PRN Reason: Pain Last Admin: 04/08/20 20:30 Dose: 100 mcg Documented by: Fentanyl (Sublimaze) Confirm Administered Dose 100 mcg .ROUTE .STK-MED ONE Stop: 04/08/20 20:14 Last Admin: 04/08/20 20:32 Dose: Not Given Documented by: Fentanyl/Bupivacaine HCl (Fentanyl/Bupivacaine/Ns 2 Mcg-0.125% 100 Ml) 100 ml EPIDUR ASDIRECTED PRN PRN Reason: Pain Last Admin: 04/08/20 20:31 Dose: 100 ml Documented by: Oxytocin/Lactated Ringer's (Pitocin In Lr 10 Units/1,000 Ml) 10 unit in 1,000 mls @ 500 mls/hr IV .CONTINUOUS JÚNIOR Last Admin: 04/09/20 01:10 Dose: 500 mls/hr Documented by: Lactated Ringer's (Ringers, Lactated) 1,000 mls @ 100 mls/hr IV ASDIRECTED JÚNIOR Last Infusion: 04/08/20 22:16 Dose: 100 mls/hr Documented by: Oxytocin/Lactated Ringer's (Pitocin In Lr 10 Units/1,000 Ml) 10 unit in 1,000 mls @ 12 mls/hr IV TITRATE JÚNIOR; Protocol Nalbuphine HCl (Nubain) 10 mg IVPUSH Q2H PRN PRN Reason: Pain Ondansetron HCl (Zofran) 4 mg IVPUSH Q4H PRN PRN Reason: Nausea/Vomiting Sodium Chloride (Saline Flush) 10 ml FLUSH ASDIRECTED PRN PRN Reason: Keep Vein Open
== END 2020-04-10 10:50 | disposition home or self-care (01) | DRG 560 ==
LOC: JD.OBCHECK 17:48 → JD.OB 17:56 → JD.OBCHECK 18:27 → JD.OB 18:30 → OBSVTOIN 04-09 01:08 → JD.OB 04-09 01:09
PROVIDERS: ADMIT Obstetrics & Gynecology; ATTEND Obstetrics & Gynecology
PROC: 10E0XZZ Delivery of Products of Conception, External Approach (ICD-10-PCS; principal; 2020-04-09)
PROC: 3E0S3GC Introduction of Other Therapeutic Substance into Epidural Space, Percutaneous Approach (ICD-10-PCS; 2020-04-09)
DX: O80 Encounter for full-term uncomplicated delivery (principal); Z3A.39 39 weeks gestation of pregnancy; Z37.0 Single live birth; Z20.828 Contact with and (suspected) exposure to other viral communicable diseases
CPT/HCPCS: 36415; 51702; 59025; 59409; 85027; 86850; 86900; 86901; A9270-GY; J2590; J3010; J3490; J7120; U0002

== ENCOUNTER 2025-02-20 06:47 | Emergency (ER) | payer BC | END 2025-02-20 08:25 | disposition home or self-care (01) | LOC: JD.ED 06:47 | DX: M54.50 Low back pain, unspecified (principal); E66.9 Obesity, unspecified; Z86.16 Personal history of COVID-19; Z79.899 Other long term (current) drug therapy; W19.XXXA Unspecified fall, initial encounter | CPT/HCPCS: 72100; 72100-26; 72170; 72170-26; 99283 ==